=== PATIENT | male | born 1990 | race African-American/Black ===

== ENCOUNTER 2016-06-20 14:30 | Emergency (ER) | payer OTHER ==
[~2016-06-20] VITALS: Ht 180.3 cm; Wt 92.5 kg
[~2016-06-20 14:30] MED LIST: ZYPREXA10 MG PO; ZYPREXA20 MG PO; ZYPREXA5 M1 PO
[2016-06-20 14:37] VITALS: BP 142/87
--- NOTE | 2016-06-20 15:55 | ED GENERAL ADULT ---
History of Present Illness General Chief Complaint: General Adult Stated Complaint: MEDICATION REFILL Source: patient, old records Exam Limitations: no limitations Vital Signs & Intake/Output Vital Signs & Intake/Output Vital Signs Date Time Temp Pulse Resp B/P Pulse O2 O2 Flow FiO2 Ox Delivery Rate 06/20 1437 97.9 85 20 142/87 98 Room Air ED Intake and Output 06/21 0000 06/20 1200 Intake Total 0 Output Total Balance 0 Intake, Oral 0 Patient 204 lb Weight Allergies Coded Allergies: Penicillins (Intermediate, HIVES 06/20/16) Reconcile Medications Olanzapine (Zyprexa) 5 MG TABLET 1 TAB PO QPM PSYCHOSIS Olanzapine (Zyprexa) 5 MG TABLET 1 TAB PO QPM psychiatric Olanzapine (Zyprexa) 5 MG TABLET 1 TAB PO QPM MOOD DISORDER Triage Note: TRIAGE: PT TO ER REQUESTING REFILL OF MEDICATION. RAN OUT OF ZYPREXA LAST NIGHT. TAKES IT QPM. UNSURE OF DOSE AT TRIAGE, STATES "EITHER 5 MG OR 10 MG." Triage Nurses Notes Reviewed? yes HPI: Patient is a 25-year-old male presents requesting medication refill. Patient reports that he takes Zyprexa before bedtime each night. Patient has an appointment with [facility] on June 23, reports that he has run out of his Zyprexa. Patient has been having difficulty sleeping since running out of his medication. At times has had hallucinations which he attributes to lack of sleep. Symptoms are currently moderate. Denies suicidal ideation, homicidal ideation, illicit substance ingestions. (MARTA SAMANO) Past History Travel History Traveled to [place] past 21 day No Medical History Any Pertinent Medical History? 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 No (MARTA SAMANO) Review of Systems Review of Systems Constitutional: Denies: chills, fever. EENTM: Reports: no symptoms. Respiratory: Denies: short of breath. Cardiovascular: Denies: chest pain. GI: Denies: abdominal pain. Musculoskeletal: Reports: no symptoms. Skin: Reports: no symptoms. Neurological/Psychological: Reports: see HPI. Hematologic/Endocrine: Reports: no symptoms. (MARTA SAMANO) Physical Exam Physical Exam General Appearance: well developed/nourished, alert, awake Head: atraumatic, normal appearance Eyes: Bilateral: normal appearance, PERRL, EOMI. Ears, Nose, Throat: normal ENT inspection, hearing grossly normal Neck: normal inspection, supple, full range of motion Respiratory: normal breath sounds, chest non-tender, no respiratory distress, lungs clear Cardiovascular: regular rate/rhythm (no appreciable murmur) Back: normal inspection, normal range of motion Extremities: normal range of motion, no edema Neurologic/Psych: awake, alert, oriented x 3, flat affect. No suicidal or homicidal ideation Skin: intact, normal color, warm/dry Lymphatic: no anterior cervical maite Core Measures ACS in differential dx? No CVA/TIA Diagnosis: No Severe Sepsis Present: No Septic Shock Present: No (MARTA SAMANO) Progress Differential Diagnoses I considered the following diagnoses in my evaluation of the patient: medication refill, mood disorder, personality disorder, psychosis, polysubstance abuse. Plan of Care: No suicidal or homicidal ideation. Patient declined crisis evaluation. Has appointment with [facility] on 06/23/16. Appears stable for discharge. Initial ED EKG: none (MARTA SAMANO) Departure Departure Time of Disposition: 1601 Disposition: HOME OR SELF CARE Condition: Stable Clinical Impression Primary Impression: Medication refill Referrals: PATIENT HAS NO PRIMARY CARE DR (PCP/Family) Additional Instructions: Follow-up with your chief i dispatcher at [facility] on June 23 as scheduled. Return to the emergency department if suicidal ideation, homicidal ideation, or worsening of symptoms Departure Forms: Customer Survey General Discharge Information Prescriptions: Current Visit Scripts Olanzapine (Zyprexa) 1 TAB PO QPM #7 TAB (MARTA SAMANO) PA/LOADING UNIT OPERATOR CRIMPING Co-Sign Statement Statement: ED Attending supervision documentation- [] I saw and evaluated the patient. I have also reviewed all the pertinent lab results and diagnostic results. I agree with the findings and the plan of care as documented in the PA's/LOADING UNIT OPERATOR CRIMPING's documentation. [X] I have reviewed the ED Record and agree with the PA's/LOADING UNIT OPERATOR CRIMPING's documentation. [] Additions or exceptions (if any) to the PAs/LOADING UNIT OPERATOR CRIMPING's note and plan are summarized below: [] (VILMA TINAJERO,RUBEN) Critical Care Note Critical Care Note Critical Care Time: non-applicable (MARYLOU PARTIDA,MARTA)
[2016-06-20] MEDS ORDERED: ZYPREXA5 M1 PO (16:02)
== END 2016-06-20 17:11 ==
LOC: ERH 14:30
DX: Z76.0 Encounter for issue of repeat prescription (principal)
CPT/HCPCS: 99281

== ENCOUNTER 2017-04-11 13:36 | Emergency (ER) | payer OTHER ==
[~2017-04-11] VITALS: Ht 180.3 cm; Wt 97.5 kg
[~2017-04-11 13:36] MED LIST changes: +BACTRIM DS TAB1 EACH PO
[2017-04-11 13:49] VITALS: BP 149/93
--- NOTE | 2017-04-11 15:39 | ED SKIN/ALLERGY COMPLAINT ---
History of Present Illness General Chief Complaint: Skin Rash/ Abcess Stated Complaint: ABCESS Source: patient Exam Limitations: no limitations Vital Signs & Intake/Output Vital Signs & Intake/Output Vital Signs Date Time Temp Pulse Resp B/P B/P Pulse O2 O2 Flow FiO2 Mean Ox Delivery Rate 04/11 1349 97.8 93 18 149/93 97 Room Air Room Air Allergies Coded Allergies: Penicillins (Intermediate, HIVES 06/20/16) Reconcile Medications Olanzapine (Zyprexa) 5 MG TABLET 1 TAB PO QPM PSYCHOSIS Olanzapine (Zyprexa) 5 MG TABLET 1 TAB PO QPM psychiatric Olanzapine (Zyprexa) 5 MG TABLET 1 TAB PO QPM MOOD DISORDER Sulfamethoxazole/Trimethoprim (Bactrim Ds Tablet) 800 MG-160 MG TABLET 1 TAB PO BID abscess Sulfamethoxazole/Trimethoprim (Bactrim Ds Tablet) 800 MG-160 MG TABLET 1 TAB PO BID abscess Triage Note: TRIAGE: 26 Y/O MALE PRESENTS C/O ABCESS TO LEFT CHEEK. WAS SEEN HERE FOR SAME -GIVEN RX: BACTRIM - LITTLE RELIEF. Triage Nurses Notes Reviewed? yes Onset: Abrupt Duration: week(s): Timing: recent history Severity: moderate Location: face No Modifying Factors: none HPI: 26-year-old male comes into the emergency room for further evaluation of skin abnormality of the left side of his face. Patient reports it started off as a small puncture wound and got a lot bigger. He was on Bactrim and they got better slightly and then got worse again since he discontinued it. Denies any fever or chills redness or discharge. (Catrachito PARTIDA,Mack) Past History Travel History Traveled to [place] past 21 day No Medical History Any Pertinent Medical History? 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 No (Mack Montero) Review of Systems Review of Systems Constitutional: Reports: no symptoms. EENTM: Reports: no symptoms. Respiratory: Reports: no symptoms. Cardiovascular: Reports: no symptoms. GI: Reports: no symptoms. Genitourinary: Reports: no symptoms. Musculoskeletal: Reports: no symptoms. Skin: Reports: see HPI. Neurological/Psychological: Reports: no symptoms. Hematologic/Endocrine: Reports: no symptoms. Immunologic/Allergic: Reports: no symptoms. All Other Systems: Reviewed and Negative (Mack Montero) Physical Exam Physical Exam General Appearance: well developed/nourished, mild distress Head: swelling left side of face Eyes: Bilateral: normal appearance. Ears, Nose, Throat: hearing grossly normal Neck: normal inspection Respiratory: no respiratory distress Back: normal inspection Extremities: normal inspection, normal range of motion, no edema Neurologic/Psych: awake, alert, oriented x 3, normal mood/affect Skin: intact, rash Skin Problem Location: face Skin Problem Character: induration to left side of face, area is about 3 x 4 cm, firm nodule, (Mack Montero) Progress Differential Diagnosis: abscess/cellulitis, dermoid cyst, keloid, hidradenitis, Plan of Care: 04/11/2017 4:44:59 PM Nothing drainable on exam. This could be potentially a keloid. I feel the patient will require likely general excision of the area which will have to be done by dermatology or general surgery. Patient was referred to general surgery. Return if any other concerns. Patient understands and agrees with plan of care. Started back on Bactrim. (Mack Montero) Departure Departure Disposition: HOME OR SELF CARE Condition: Stable Clinical Impression Primary Impression: Cyst of face Secondary Impressions: Keloid of skin Referrals: Patient Has No Primary Care Dr (PCP/Family) Tory TINAJERO,Nam N. Additional Instructions: Follow-up with general surgeon provided. Take Bactrim as prescribed. Return if any other concerns. Please go over all results of today's visit with your primary care doctor. Contact your primary care doctor to let them know you were here in the emergency room. There may be nonspecific findings which may not be related to your visit today here in the emergency room but may require further evaluation and chronic monitoring by your primary care doctor. If you had a laceration today the chance of foreign body always remains. You should follow-up with your primary care doctor for recheck in 3-5 days for a wound check. If you had an x-ray done there is a chance that a fracture could have been missed on initial read and you should follow-up with your primary care doctor for repeat x-rays if symptoms persist. If your blood pressure was elevated here in the emergency room please have rechecked by [facility] primary care doctor within the next 48. If you were prescribed a narcotic here in the emergency room or any type of controlled substances you're not allowed to drive while taking this medication or operate any type of heavy machinery. Narcotics can make you feel lightheaded dizziness nausea and can cause constipation. You may need to leaf size picker a stool softener. Thank you for choosing [facility] emergency room. Please return to the emergency room immediately if you have any other concerns worsening of symptoms. Departure Forms: Customer Survey General Discharge Information Prescriptions: Current Visit Scripts Sulfamethoxazole/Trimethoprim (Bactrim Ds Tablet) 1 TAB PO BID #20 TAB (Mack Montero) PA/OCC THERAPY ASST Co-Sign Statement Statement: ED Attending supervision documentation- [] I saw and evaluated the patient. I have also reviewed all the pertinent lab results and diagnostic results. I agree with the findings and the plan of care as documented in the PA's/OCC THERAPY ASST's documentation. [X] I have reviewed the ED Record and agree with the PA's/OCC THERAPY ASST's documentation. [] Additions or exceptions (if any) to the PAs/OCC THERAPY ASST's note and plan are summarized below: [] (Tnaa TINAJERO,Hal Marc) Procedures Incision and Drainage Site: face Blade Size: 11 I & D Procedure: Yes: betadine prep, sterile drapes applied, sterile dressing applied. Progress: No discharge, material firm on inside, nothing drainable (Mack Montero)
[2017-04-11] MEDS ORDERED: BACTRIM DS TAB1 EACH PO (16:37)
== END 2017-04-11 15:53 ==
LOC: ERH 13:36
DX: L72.9 Follicular cyst of the skin and subcutaneous tissue, unspecified (principal); L91.0 Hypertrophic scar